=== PATIENT | male | born 1945 | race Caucasian/White ===

== ENCOUNTER 2017-01-11 23:58 | Inpatient (IN) | payer MEDICARE, OTHER ==
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
--- NOTE | ~2017-01-11 | DS ---
Discharge Summary [facility] [address] [place]. [address] NAME: VENU MEDINA : 47 STATUS : DIS IN PAT#: [id number] AGE: 71 ADM/REG DATE : 01/12/17 MR#: [id number] REPORT SERV DATE: 01/15/17 DICTATED BY: BRUNO PEÑALOZA DATE: 01/14/17 REPORT STATUS : Draft TRANSCRIBED BY: MODL DATE: 01/14/17 ADMISSION DATE: 01/12/2017 DISCHARGE DATE: 01/14/2017 DISCHARGE DIAGNOSES: 1. Sepsis. 2. Cystitis status post cystoscopy with biopsy at [facility] on 01/11/2017. 3. Urethral cancer followed by Dr. Rose and Dr. Aggarwal at [facility]. 4. Acute renal failure. 5. Hyperglycemia. 6. Hypothyroidism. IMAGIN. Chest x-ray, 01/11/2017. Impression: Left basilar atelectasis. 2. Chest x-ray, 01/12/2017. Impression: Left basilar atelectasis. 3. CT abdomen and pelvis, 01/12/2017. Impression: Diffuse inflammation surrounding the left kidney with moderate left hydronephrosis, possible pyelonephritis with left ureteral stent present. Bilateral iliac and retroperitoneal lymphadenopathy. Mild straining surrounding the bladder and possible cystitis. A 9 mm soft tissue nodule in the right anterior pelvis adjacent bladder, possible metastasis. Prior right nephrectomy. LABORATORY DATA: WBC is 5.5, hemoglobin 12.9, hematocrit 39.3, and platelet count is 152. Procalcitonin is 0.59. Sodium is 135, potassium is 4.6, CO2 is 20, BUN is 43, creatinine is 2.74, and glucose is 156. CONSULTATIONS: 1. Renal, Dr. Oden on 01/13/2017. 2. Urology, Dr. Menjivar on 01/14/2017. HOSPITAL COURSE: Please refer to history and physical dictated by Dr. Daryl Villasenor on 01/12/2017 for complete admission details as well as consultation note by Dr. Menjivar and Dr. Oden. This patient is a 71-year-old gentleman, who presented to [facility]'s Emergency Room with complaints of fevers and discolored urine. The patient stated he had undergone a cystoscopy with ureteral stent placement at [facility] for urethral cancer on 01/12/2017. The patient was admitted to the hospital. Laboratory data was obtained. Imaging was obtained as noted above. The patient continued to run fevers. Consult were obtained. Per Urology, due to patient's complicated history the patient is to be transferred to [facility] for further treatment. The patient and are in agreement with this. The patient will be followed by his oncologist at [facility]. The patient's WBC count upon admission was 14.7. At this time WBC count is 5.5. Procalcitonin Discharge Summary [address] [address] NAME: VENU MEDINA : 47 STATUS : DIS IN PAT#: [id number] AGE: 71 ADM/REG DATE : 01/12/17 MR#: [id number] REPORT SERV DATE: 01/15/17 DICTATED BY: BRUNO PEÑALOZA DATE: 01/14/17 REPORT STATUS : Draft TRANSCRIBED BY: MAURICE DATE: 01/14/17 was checked it was 0.59. The patient at this time is on Rocephin and Levaquin. The patient's BUN upon admission was 36, creatinine was 2.56. At this time BUN is 43 and creatinine is 2.74. At this time, the patient is in stable condition. He will be transported via EMS to [facility]. DISCHARGE MEDICATIONS: 1. Norvasc 5 mg one p.o. at bedtime. 2. Rocephin 1 g every 24 hours. Last dose given this a.m. 3. Insulin sliding scale. 4. Levothyroxine 175 mcg p.o. every morning. 5. Pravachol 40 mg one p.o. at bedtime. 6. Levaquin 750 mg IV every 48 hours. Last dose given this a.m. 7. Tylenol 325 mg, 650 mg p.o. every 4 hours p.r.n. for pain or fever. 8. Atropine 0.5 mg IV p.r.n. 9. Colace 100 mg one p.o. twice daily p.r.n. for constipation. 10.Glucagon 1 mg IM p.r.n. 11.Glucose tablets, three tablets p.o. p.r.n. 12.Glucose tablets, 60 p.o. p.r.n. 13.Morphine 2 mg, 1 mg IV every 2 hours p.r.n. for pain. 14.Nitroglycerin 0.4 mg tab p.r.n. 15.Zofran 4 mg one p.o. every 4 hours p.r.n. for nausea. 16.Ditropan 5 mg one p.o. three times daily. 17.Percocet 5 mg, one to two tabs every 4 hours p.r.n. for pain. This discharge took less than 30 minutes. JUAN J/MAURICE Bruno Peñaloza NP / [id number] CC: MD Tommy Guardado M.D.
--- NOTE | ~2017-01-11 | CN ---
Consultation Report [facility] [address] [place]. [address] NAME: VENU MEDINA : 47 STATUS : ADM IN PAT#: [id number] AGE: 71 ADM/REG DATE : 01/12/17 MR#: [id number] REPORT SERV DATE: 01/13/17 DICTATED BY: LAVERNE ODEN DATE: 01/13/17 REPORT STATUS : Draft TRANSCRIBED BY: MODJeff DATE: 01/13/17 CONSULTATION DATE OF CONSULTATION: 01/13/2017 TIME: 7:50 p.m. ASSESSMENT: Acute on chronic kidney disease in a 71-year-old male with metastatic urothelial cancer with solitary functioning left kidney. CT scan showing now left mild to moderate hydronephrosis in the setting of a left ureteric stent placed this past Saturday. He has acute on chronic kidney disease indicated by serum creatinine of 2.77 present now with baseline creatinine of 1.6 as of 10/2016. PLAN: Therefore: 1. He is hemodynamically stable, so we will not continue any IV fluids unless he becomes hypotensive. 2. He is already on Rocephin and vancomycin, and I will add a single dose of IV Levaquin. 3. I spoke with the fellow at [facility]. He will look up the records for Mr. Medina and consideration for transfer will be made in the next 24 to 36 hours. For now, we will check lab work in the morning, await cultures regarding his urine and blood, and we will continue his treatment that he is undergoing for his diabetes and hypertension. HISTORY OF PRESENT ILLNESS: History is obtained from the patient and his . He is a pleasant 71-year-old gentleman who has been diagnosed with a history of urothelial cancer. Back in 2005, he underwent a laparoscopic right nephroureterectomy and remained fairly stable until 2007 when he developed left-sided groin pain. His initial cystoscopy was negative, but CT scan showed enlarging right paracaval lymph nodes and biopsies of which confirmed in 08/2008 of recurrence of regional urothelial cancer. He has been treated with carboplatin and gemcitabine back in 2008 and more recently up to 2011. In 2013, he was found to have right external iliac lymph node involvement, for which he underwent resection by Dr. Aggarwal at [facility] and found to have 1 of 9 lymph nodes involvement. Subsequently, he has been treated with gemcitabine and carboplatin up to 03/2015. He was at [facility] this past week. He gets cystoscopies regularly. He had a cystoscopy at the beginning of 12/2016 that showed quite an inflamed bladder and kidney, and therefore, he was asked to come back sooner than usual and he went back this past Saturday, and he had a stent placed in view of the inflamed ureter and bladder. He was also advised that should he have a fever, he should go to the nearest ER. So, he gets home on Saturday and his temperature goes up, and he comes to the ER here and has a temperature of 101.4, white count is elevated at 14,000, and he is admitted. In addition, he undergoes a CT scan of his abdomen and pelvis and that revealed diffuse inflammation of the left kidney with moderate left hydronephrosis, possible pyelonephritis, and left ureteric stent was noted. He had bilateral iliac and retroperitoneal adenopathy and there was bladder stranding and possible cystitis and there was a nodule in the right anterior pelvis adjacent to the bladder, possibly suggestive of metastatic disease, and he had a right nephrectomy. So, he is placed Consultation Report [address] [place]. [address] NAME: VENU MEDINA : 49 STATUS : ADM IN [facility]#: [id number] AGE: 71 ADM/REG DATE : 01/12/17 MR#: [id number] REPORT SERV DATE: 01/13/17 DICTATED BY: LAVERNE ODEN DATE: 01/13/17 REPORT STATUS : Draft TRANSCRIBED BY: MAURICE DATE: 01/13/17 on vancomycin and Rocephin, he is hemodynamically stable, and we were consulted to follow up on his acute kidney injury. PAST MEDICAL HISTORY: Includes the cancer as indicated, type 2 diabetes, hypertension, and history of hypercholesterolemia. Graves disease, he has had post thyroid ablation in 2001 and he is on thyroid supplementation. SOCIAL HISTORY: He does not smoke cigarettes. No alcohol or medication or street drug usage. FAMILY HISTORY: Negative for chronic kidney disease or end-stage renal failure in his parents or family. 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 Villasenor. His father had cancer and of cancer. HOME MEDICATIONS: Tylenol, Norvasc, levothyroxine, oxybutynin, Endocet, Pravachol, and Bactrim. The Bactrim is on hold. PHYSICAL EXAMINATION: GENERAL: He is an obese gentleman, in no acute distress. He is awake, alert, and oriented to time, place, and person. VITAL SIGNS: Showed him to have a blood pressure of 146/70, heart rates in the 70s, he is 99.5. HEENT: He is pale but not jaundiced. His oral mucosa is moist. No pharyngitis. NECK: Supple. No thyromegaly. No carotid bruits. Trachea is central. LUNGS: Air entry is equal bilaterally. CHEST: Clear to auscultation. Cardiac apex beats not displaced. S1, S2. No rub. ABDOMEN: Obese, distended. There is no tenderness, guarding, or rebound. No hepatosplenomegaly. Bowel sounds normal. He has no peripheral edema. NEUROLOGIC: He is awake, alert, and oriented to time, place, and person. His affect is not depressed. MUSCULOSKELETAL: He has no edema or rash. His muscle bulk and tone are appropriate for age. There are no acute arthritic findings noted. LYMPHATIC: There is no supraclavicular, axillary, or inguinal adenopathy. VASCULAR: His peripheral pulses are present in dorsalis pedis and posterior tibial. LABORATORY DATA: His lab work shows sodium 136, potassium 4.7, chloride 105, CO2 of 22, BUN 35, creatinine 2.77, calcium 7.9, albumin 2.9. Hemoglobin is 12.4, hematocrit is 37.7, white count is 8.3, platelet count is 144,000. The urinalysis showed proteinuria, pyuria, and hematuria. MG/MODL Consultation Report [address] [place]. [address] NAME: VENU MEDINA : 49 STATUS : ADM IN [facility]#: [id number] AGE: 71 ADM/REG DATE : 01/12/17 MR#: [id number] REPORT SERV DATE: 01/13/17 DICTATED BY: LAVERNE ODEN DATE: 01/13/17 REPORT STATUS : Draft TRANSCRIBED BY: MAURICE DATE: 01/13/17 Laverne Oden M.D. / [id number] CC: MD Tommy Guardado M.D.
--- NOTE | ~2017-01-11 | CN ---
Consultation Report [facility] [address]. [address] NAME: VENU MEDINA : 49 STATUS : ADM IN PAT#: [id number] AGE: 71 ADM/REG DATE : 01/12/17 MR#: [id number] REPORT SERV DATE: 01/14/17 DICTATED BY: KAREL ROY DATE: 01/14/17 REPORT STATUS : Draft TRANSCRIBED BY: MODL DATE: 01/14/17 DATE OF CONSULTATION: REASON FOR CONSULTATION: Assistance in management of complex urothelial cancer and cystitis. REQUESTING PHYSICIAN: Hospitalist Service. IMPRESSION: 1. Persistent fevers, but hemodynamically stable. 2. Complex urothelial carcinoma history with what appears to be metastatic disease. He recently had a cystoscopy, retrograde pyelography, and ureteroscopy with biopsies at [facility]. He has been appropriately stented and drained with a Roy catheter. His cystitis symptoms have minimally resolved. Results of the pathology are not available to me. He is scheduled for transfer back to [facility] this morning. PLAN: I will defer further management to the urologist at [facility]. DISCUSSION: Mr. Medina is a 71-year-old male, who has a complex urothelial carcinoma history. He had a right nephroureterectomy in 2006. He has been managed at [facility]. It appears from a CT scan done last night that he has metastatic disease, although I have not confirmed that. He is scheduled to begin immunotherapy in the near future. He was having quite a bit of lower tract urinary symptoms and irritation. He had taken a course of antibiotics several weeks ago. He was biopsied last week in [place]. He developed some fevers and has been admitted to this hospital. CT scan shows a stent in good position in the left kidney and a Roy catheter in the bladder. His bladder appears thick walled. There is lymphadenopathy noted on the CT scan. PHYSICAL EXAMINATION: GENERAL: He is awake and alert. He does not appear toxic. He is oriented. VITAL SIGNS: He is afebrile, he does not feel warm, although one of his last temperatures was recorded at 101. His vital signs are stable. He is not tachycardic, and his blood pressure is good. HEENT: He has a hearing loss. ABDOMEN: Soft and nontender. No distention. No guarding or rebound. His flanks are nontender to palpation. : There is a Roy catheter draining his bladder and his penis. EXTREMITIES: Lower extremities show no deformities. STUDIES: White blood cell count on admission was 14,000 and it declined to 8000 with antibiotic therapy; H and H are 12 and 37; platelet count 144,000. Serum creatinine is 2.77. The case was discussed with the patient's family. Consultation Report [address] [place]. [address] NAME: VENU MEDINA : 49 STATUS : ADM IN PAT#: [id number] AGE: 71 ADM/REG DATE : 01/12/17 MR#: [id number] REPORT SERV DATE: 01/14/17 DICTATED BY: KAREL ROY DATE: 01/14/17 REPORT STATUS : Draft TRANSCRIBED BY: MAURICE DATE: 01/14/17 PF/MAURICE Karel Roy M.D. / [id number] CC: MD Tommy Guardado M.D.
[2017-01-11 23:01] LABS: BASOPHILS 0.1 %; BASOPHILS ABSOLUTE 0.02 10/3/uL (0.0-0.16); EOSINOPHILS 0 %; IMMATURE GRANULOCYTES 0.3 %; IMMATURE GRANULOCYTES ABSOLUTE 0.05 10/3/uL (0.0-0.11); LYMPHOCYTES 3.3 %; LYMPHOCYTES ABSOLUTE 0.48 10/3/uL (0.67-4.30); MEAN CORPUS HGB CONC 32.5 g/dL (32.0-36.0); MEAN CORPUSCULAR HEMOGLOB 31.2 pg (26.0-34.0); MEAN PLATELET VOLUME 10.3 fL (9.2-13.0); MONOCYTES 7.3 %; MONOCYTES ABSOLUTE 1.07 10/3/uL (0.21-1.20); NEUTROPHILS ABSOLUTE 13.07 10/3/uL (2.02-8.40); PLATELET COUNT 203 10/3/uL (150-400); RBC DISTRIBUTION WIDTH 13.8 % (12.0-16.0); RED CELL COUNT 4.75 10/6/uL (4.7-6.1)
[2017-01-11 23:04] LABS: ER CBC TAT 0 Hrs 08 Mins; HEMATOCRIT 45.6 % (40.0-51.0); HEMOGLOBIN 14.8 g/dL (13.6-17.8); MANUAL DIFF NO %; WHITE BLOOD CELLS 14.7 10/3/uL (4.5-10.5)
[2017-01-11 23:19] LABS: A/G RATIO 0.8 (0.7-1.9); ALBUMIN 3.5 G/DL (3.5-5.0); ALKALINE PHOSPHATASE 57 U/L (45-117); CALCIUM, SERUM 8.7 MG/DL (8.5-10.4); CHLORIDE, SERUM 102 MMOL/L (96-112); CO2 (CARBON DIOXIDE) 26 MMOL/L (24-34); GLOBULIN 4.3 G/DL (2.5-4.1); POTASSIUM, SERUM 4.9 MMOL/L (3.5-5.3); SGOT(AST) 20 U/L (5-40); SGPT(ALT) 20 U/L (5-65); SODIUM, SERUM 136 MMOL/L (135-148); TOTAL BILIRUBIN 0.4 MG/DL (0-1.2); TOTAL PROTEIN 7.8 G/DL (6.0-8.5)
[2017-01-11 23:20] LABS: BUN (BLOOD UREA NITROGEN) 36 MG/DL (6-23); CREATININE 2.56 MG/DL (0.70-1.30); GFR AFRICAN AMERICAN 28 ML/MIN (>=60); GFR NON AFRICAN AMERICAN 25 ML/MIN (>=60); GLUCOSE, SERUM 200 MG/DL (60-99)
[~2017-01-11 23:58] MED LIST: ACET500CAP PO; BACDS PO; COZ50 PO; DITRO5 PO; ENDOCET1 TAB PO; LEVAQUIN5T PO; LEVOTHYROXIN175 MCG PO; NORV5 PO; PRAVACHOL40 MG PO; SYNTHROID175 MCG PO
[2017-01-12 02:07] LABS: ASCORBIC ACID (UR NOT ORDER) NEG (NEG); BILIRUBIN, URINE NEGATIVE (NEG); ER URINALYSIS TAT 0 Hrs 00 Mins; KETONE, URINE NEGATIVE (NEG); LEUKOCYTE ESTERASE(NOT OR LARGE (NEG); NITRITE (URINE) POS (NEG); WBC (NOT ORDERED) (RFLEX) > 182 (0-5)
[2017-01-12 08:27] LABS: A/G RATIO 0.8 (0.7-1.9); ALBUMIN 2.9 G/DL (3.5-5.0); ALKALINE PHOSPHATASE 48 U/L (45-117); BUN (BLOOD UREA NITROGEN) 34 MG/DL (6-23); CALCIUM, SERUM 7.9 MG/DL (8.5-10.4); CHLORIDE, SERUM 107 MMOL/L (96-112); CO2 (CARBON DIOXIDE) 23 MMOL/L (24-34); CREATININE 2.43 MG/DL (0.70-1.30); GFR AFRICAN AMERICAN 30 ML/MIN (>=60); GFR NON AFRICAN AMERICAN 26 ML/MIN (>=60); GLOBULIN 3.8 G/DL (2.5-4.1); GLUCOSE, SERUM 168 MG/DL (60-99); POTASSIUM, SERUM 4.5 MMOL/L (3.5-5.3); SGOT(AST) 20 U/L (5-40); SGPT(ALT) 21 U/L (5-65); SODIUM, SERUM 138 MMOL/L (135-148); TOTAL BILIRUBIN 0.5 MG/DL (0-1.2); TOTAL PROTEIN 6.7 G/DL (6.0-8.5); ULTRASENSITIVE TSH 0.066 MCIU/ML (0.358-3.740)
[2017-01-13 05:47] LABS: BASOPHILS 0.1 %; BASOPHILS ABSOLUTE 0.01 10/3/uL (0.0-0.16); EOSINOPHILS 0.1 %; EOSINOPHILS ABSOLUTE 0.01 10/3/uL (0.0-0.53); HEMOGLOBIN 12.4 g/dL (13.6-17.8); IMMATURE GRANULOCYTES 1.4 %; IMMATURE GRANULOCYTES ABSOLUTE 0.12 10/3/uL (0.0-0.11); LYMPHOCYTES 6.5 %; LYMPHOCYTES ABSOLUTE 0.54 10/3/uL (0.67-4.30); MEAN CORPUS HGB CONC 32.9 g/dL (32.0-36.0); MEAN CORPUSCULAR VOLUME 94.3 fL (80-100); MONOCYTES ABSOLUTE 0.33 10/3/uL (0.21-1.20); NEUTROPHILS 87.9 %; NEUTROPHILS ABSOLUTE 7.28 10/3/uL (2.02-8.40); PLATELET COUNT 144 10/3/uL (150-400); RBC DISTRIBUTION WIDTH 14.7 % (12.0-16.0)
[2017-01-13 05:48] LABS: HEMATOCRIT 37.7 % (40.0-51.0); MANUAL DIFF NO %; WHITE BLOOD CELLS 8.3 10/3/uL (4.5-10.5)
[2017-01-13 06:04] LABS: BUN (BLOOD UREA NITROGEN) 35 MG/DL (6-23); CALCIUM, SERUM 7.9 MG/DL (8.5-10.4); CHLORIDE, SERUM 105 MMOL/L (96-112); CO2 (CARBON DIOXIDE) 22 MMOL/L (24-34); CREATININE 2.77 MG/DL (0.70-1.30); GFR AFRICAN AMERICAN 26 ML/MIN (>=60); GFR NON AFRICAN AMERICAN 22 ML/MIN (>=60); GLUCOSE, SERUM 154 MG/DL (60-99); POTASSIUM, SERUM 4.7 MMOL/L (3.5-5.3); SODIUM, SERUM 136 MMOL/L (135-148)
[2017-01-13 18:37] LABS: CREATININE, URINE 77.4 MG/DL
[2017-01-14 06:43] LABS: BASOPHILS 0.2 %; BASOPHILS ABSOLUTE 0.01 10/3/uL (0.0-0.16); EOSINOPHILS 0.5 %; EOSINOPHILS ABSOLUTE 0.03 10/3/uL (0.0-0.53); HEMATOCRIT 39.3 % (40.0-51.0); HEMOGLOBIN 12.9 g/dL (13.6-17.8); IMMATURE GRANULOCYTES 0.7 %; IMMATURE GRANULOCYTES ABSOLUTE 0.04 10/3/uL (0.0-0.11); LYMPHOCYTES 17.6 %; LYMPHOCYTES ABSOLUTE 0.97 10/3/uL (0.67-4.30); MEAN CORPUS HGB CONC 32.8 g/dL (32.0-36.0); MEAN CORPUSCULAR HEMOGLOB 30.6 pg (26.0-34.0); MEAN CORPUSCULAR VOLUME 93.3 fL (80-100); MEAN PLATELET VOLUME 10.2 fL (9.2-13.0); MONOCYTES 6.5 %; MONOCYTES ABSOLUTE 0.36 10/3/uL (0.21-1.20); NEUTROPHILS 74.5 %; PLATELET COUNT 152 10/3/uL (150-400); RBC DISTRIBUTION WIDTH 14.3 % (12.0-16.0); RED CELL COUNT 4.21 10/6/uL (4.7-6.1); WHITE BLOOD CELLS 5.5 10/3/uL (4.5-10.5)
[2017-01-14 06:44] LABS: MANUAL DIFF NO %
[2017-01-14 06:48] LABS: INTERNATIONAL NORMAL RATI 1.2 UNITS (-); PROTIME (NOT ORD) 15.2 SEC (12.0-14.5)
[2017-01-14 06:56] LABS: ALKALINE PHOSPHATASE 55 U/L (45-117); CALCIUM, SERUM 8.5 MG/DL (8.5-10.4); CHLORIDE, SERUM 104 MMOL/L (96-112); CO2 (CARBON DIOXIDE) 20 MMOL/L (24-34); CREATININE 2.74 MG/DL (0.70-1.30); DIRECT BILIRUBIN 0.1 MG/DL (0.0-0.4); FREE T4 1.16 NG/DL (0.76-1.46); GFR AFRICAN AMERICAN 26 ML/MIN (>=60); GFR NON AFRICAN AMERICAN 23 ML/MIN (>=60); GLUCOSE, SERUM 156 MG/DL (60-99); INDIRECT BILIRUBIN(NOT ORDER) 0.3 MG/DL (0.1-0.9); PHOSPHORUS, SERUM 2.5 MG/DL (2.5-4.5); POTASSIUM, SERUM 4.6 MMOL/L (3.5-5.3); SGOT(AST) 62 U/L (5-40); SGPT(ALT) 35 U/L (5-65); SODIUM, SERUM 135 MMOL/L (135-148); TOTAL BILIRUBIN 0.4 MG/DL (0-1.2); TOTAL PROTEIN 6.9 G/DL (6.0-8.5)
[2017-01-14 06:57] LABS: BUN (BLOOD UREA NITROGEN) 43 MG/DL (6-23)
[2017-01-14 08:48] LABS: PROCALCITONIN 0.59 ng/mL (<0.5)
== END 2017-01-14 17:59 | disposition short-term general hospital (02) | DRG 862 ==
LOC: ER 23:58 → 2SO 01-12 00:25
PROVIDERS: Emergency Medicine; Hospitalist; Internal Medicine; Internal Medicine Nephrology; Nurse Practitioner Adult Health
DX: T81.4XXA Infection following a procedure, initial encounter (principal); A41.9 Sepsis, unspecified organism; N17.9 Acute kidney failure, unspecified; E11.65 Type 2 diabetes mellitus with hyperglycemia; N13.6 Pyonephrosis; E03.9 Hypothyroidism, unspecified; N18.3 Chronic kidney disease, stage 3 (moderate); C67.9 Malignant neoplasm of bladder, unspecified; Z90.5 Acquired absence of kidney; Z92.21 Personal history of antineoplastic chemotherapy; E78.00 Pure hypercholesterolemia, unspecified; Y83.8 Other surgical procedures as the cause of abnormal reaction of the patient, or of later complication, without mention of misadventure at the time of the procedure
CPT/HCPCS: 71010; 71020; 74176; 80048; 80053; 80069; 80076; 80202; 81001; 82570; 82962; 83036; 83605; 83735; 84145; 84300; 84439; 84443; 85025; 85610; 87040; 87086; 93005; 96365; 99284; A9270-GY; J1956; J3370